=== PATIENT | female | born 1985 | race Two or more races ===

== ENCOUNTER 2025-02-02 12:43 | Outpatient (RCR) | payer MEDICAID, SELFPAY ==
--- NOTE | 2025-02-02 13:03 | XR_ITS ---
Examination: Biophysical profile, ultrasound Date and time of exam: February 02, 2025 1313 hours INDICATIONS: Diagnosis advanced maternal age Technique: Multiple transabdominal sonographic images of the pelvis abdomen obtained. Attention is directed to the breathing movement, gross body movement, amniotic fluid volume and tone. Findings: Amniotic fluid index 9.1 cm Total biophysical profile is 8 of 8. breathing movement is 2. Gross body movement is 2. tone is 2. Qualitative amniotic fluid volume is 2 Impression: Biophysical profile is 8 of 8.
[2025-02-02 13:35] VITALS: BP 112/55; PULSE 74; RESP 16; TEMP 36.7
== END 2025-02-02 23:59 | disposition home or self-care (01) ==
LOC: S4S1 12:43
PROVIDERS: Referring Provider Nurse Practitioner Women's Health; Visit Provider Nurse Practitioner Women's Health
DX: O09.523 Supervision of elderly multigravida, third trimester (principal); Z3A.37 37 weeks gestation of pregnancy
CPT/HCPCS: 59025; 76819

== ENCOUNTER 2025-02-03 02:24 | Inpatient (IN) | payer MEDICAID, SELFPAY ==
[2025-02-03] VITALS (13 sets, daily range): BP systolic 97–162; BP diastolic 58–91; PULSE 63–98; RESP 15–99; TEMP 36.6–37.4; O2SAT 98; BMI 35.2
[2025-02-03] MEDS: OXYTOCIN in NS 20 units 20 UNIT/1,000 ML BAG 125 UNIT IV (03:25)
[2025-02-03] MEDS: BENZO/LANO/ALOE (Dermoplast) 60 GM CAN 1 SPRAY TOP (03:29)
--- NOTE | 2025-02-03 03:29 | PD.LDHP ---
Documentation for date of: 02/03/25 OB Labor/Induct. HPI History of Present Illness : 9 Para: 7 Term pregnancies: 3 pregnancies: 4 Living children: 7 History of Abortions: Spontaneous and Elective: 2 History of Vaginal deliveries: 7 History of sections: No History of : No Date of last menstrual period: 05/15/24 SHEA: 02/19/25 Gestational Age (weeks): 37 Gestational Age (days): 5 Gestational age based on last menstrual period: 37 History of present illness: 40-year-old -4-0-7 at 37 weeks and 5 days estimated due date of 02/19/2025 presented to labor and delivery triage with advanced cervical dilatation and went on to proceed deliver precipitously Patient is a grand multipara with a history of 4 deliveries between 33 and 36 weeks She receives care with CNM at [facility] Per verbal history and available records no specific medical complications of were not History of Present Adequate Care: Yes Labs Maternal Blood Type: O Pos Labs: Positive: Rubella Titre, Negative: RPR, Hepatitis B, HIV, Chlamydia, Gonorrhea and Group Beta Strep and Unknown: Herpes Type 1, Herpes Type 2 and Covid-19 Review of Systems Review of Systems Systems Reviewed: All systems reviewed, normal except as documented Past Medical History Surgical History SURGICAL: Negative Section Meds Home Medications and Allergies Home Medications ?Medication ?Instructions ?Recorded ?Confirmed ?Type ferrous sulfate 325 mg (65 mg 325 mg PO QDAY 02/23/23 02/03/25 History iron) tablet (Iron (ferrous sulfate)) folic acid 1 mg tablet 1 mg PO QDAY 02/23/23 02/03/25 History [id number] 1 mg 1 tab PO 1XD 02/23/23 02/03/25 History tablet Allergies Allergy/AdvReac Type Severity Reaction Status Date / Time No Known Allergies Allergy Verified 02/03/25 03:09 OB Exam Constitutional Constitutional: no acute distress Routine HEENT Exam Head: Present normocephalic and atraumatic Eye: Present EOMI and PERRL ENT: Present mucous membranes moist Routine Neck Exam Neck: Present supple and trachea midline Routine Cardiovascular Exam Cardiovascular: Present RRR Routine Abdominal Exam Abdominal: Present soft and normoactive bowel sounds Detailed Labor and Delivery Exam Dilation (cm): 10 Effacement (%): 100 Cervix position: mid station: +3 Consistency: soft Presentation: Vertex Baseline heart rate: 140 monitor accelerations: 15x15 monitor decelerations: None manager long term care variability: Average (6-10) Contraction frequency (min): 5 Routine Extremities Exam Extremities: Present full ROM Routine Skin Exam Skin: Present intact, dry and warm Routine Neurological Exam Neurological: Present alert, oriented X3 and CN II-XII intact Routine Psychiatric Exam Psychiatric: Present normal affect and normal thought process OB Assessment & Plan Assessment and Plan (1) Precipitous delivery: Status: Acute Assessment and plan: Admit to Inpatient to labor and Delivery GBS: neg Vital Signs per protocol External monitor/Tocometry Activity: Bedrest w/bathroom privileges Intake and Urine Output Monitoring Urine catheter as needed Diet: As tolerated in Intravenous Fluids: Lactated Ringers 5% Dextrose at 125 cc/hour Labs Complete Blood Count Blood Type and Antibody Screen (Indirect Quinn) RPR COVID-19 RNA Plan: Routine management Monitor for hemorrhage due to grand multiparity
[2025-02-03 05:14] LABS: Basophils % (Auto) 0 % (0-2.5); Eosinophils # (Auto) 0.1 Thou/mm3 (0.0-0.5); Eosinophils % (Auto) 1 % (0-10); Hematocrit 30.7 % (36.0-46.0); Hemoglobin 9.8 g/dL (12.0-16.0); Immature Granulocytes % (Auto) 2 % (0-0); Immature Granulocytes Auto 0.17 Thou/mm3 (0.00-0.00); Lymphocytes # (Auto) 2.1 Thou/mm3 (1.0-4.8); Lymphocytes % (Auto) 21 % (10-50); Mean Corpuscular HGB Conc 31.9 g/dl (31.0-37.0); Mean Corpuscular Hemoglobin 23.3 pg (25.0-35.0); Mean Corpuscular Volume 73 fL (80-100); Monocytes # (Auto) 0.6 Thou/mm3 (0.0-0.8); Monocytes % (Auto) 6 % (0-12); Neutrophils % (Auto) 70 % (37-80); Nucleated Red Blood Cell # 0.05 Thou/mm3 (0.00-0.00); Nucleated Red Blood Cell % 1 /100 WBC (0); Platelet Count 209 Thou/mm3 (140-440); RDW Standard Deviation 43.1 fL (36.4-46.3)
[2025-02-03] MEDS: DOCUSATE SOD 100 MG CAPSULE PO (08:52)
[2025-02-03 10:33] LABS: Alanine Aminotransferase 8 U/L (10-49); Albumin, Serum 2.9 gm/dL (3.5-5.0); Albumin/Globulin Ratio 1.3 (1.2-2.2); Alkaline Phosphatase 107 U/L (46-116); Anion Gap 9 (7-16); Aspartate Amino Transferase 16 U/L (0-34); BUN/Creatinine Ratio 34 Ratio (12-20); Bilirubin,Total 0.3 mg/dL (0.3-1.2); Blood Urea Nitrogen 17 mg/dL (9-23); Calcium 8.1 mg/dL (8.3-10.6); Carbon Dioxide 20.5 mMol/L (20.0-31.0); Chloride 109 mMol/L (98-107); Creatinine (Component) 0.5 mg/dL (0.6-1.3); Estimated Creatinine Clearance 173.3 mL/min (>60); Globulin 2.2 gm/dL (2.3-3.5); Glucose 110 mg/dL (74-106); LDH (Lactate Dehydrogenase) 215 U/L (120-246); Osmolality,Calculated 278 (275-295); Potassium 3.8 mMol/L (3.4-5.1); Sodium 138 mMol/L (136-145); Total Protein 5.1 gm/dL (5.7-8.2); Uric Acid 4.1 mg/dL (3.1-7.8); eGFR > 60 See Note
[2025-02-03] MEDS: IBUPROFEN TAB 400 MG TABLET 800 MG PO (12:43)
[2025-02-03 13:49] LABS: Syphilis Nonreactive (Nonreactive)
[2025-02-04 03:55] VITALS: BP 114/73; PULSE 61; RESP 18; TEMP 36.7; O2SAT 98
[2025-02-04 06:48] LABS: Basophils # (Auto) 0.1 Thou/mm3 (0.0-0.2); Basophils % (Auto) 1 % (0-2.5); Eosinophils # (Auto) 0.1 Thou/mm3 (0.0-0.5); Eosinophils % (Auto) 1 % (0-10); Hematocrit 24.7 % (36.0-46.0); Immature Granulocytes % (Auto) 2 % (0-0); Immature Granulocytes Auto 0.15 Thou/mm3 (0.00-0.00); Lymphocytes # (Auto) 1.9 Thou/mm3 (1.0-4.8); Lymphocytes % (Auto) 20 % (10-50); Mean Corpuscular Hemoglobin 24.2 pg (25.0-35.0); Mean Corpuscular Volume 76 fL (80-100); Monocytes # (Auto) 0.5 Thou/mm3 (0.0-0.8); Monocytes % (Auto) 5 % (0-12); Neutrophils # (Auto) 6.7 Thou/mm3 (1.8-7.7); Neutrophils % (Auto) 71 % (37-80); Nucleated Red Blood Cell # 0.02 Thou/mm3 (0.00-0.00); Nucleated Red Blood Cell % 0 /100 WBC (0); Platelet Count 179 Thou/mm3 (140-440); RDW Standard Deviation 44.8 fL (36.4-46.3); Red Blood Count 3.27 Miln/mm3 (4.00-5.20); White Blood Count 9.4 Thou/mm3 (3.6-11.0)
[2025-02-04 06:50] LABS: Hemoglobin 7.9 g/dL (12.0-16.0)
[2025-02-04 08:00] VITALS: BP 110/71; PULSE 66; RESP 16; TEMP 36.8
[2025-02-04] MEDS: DOCUSATE SOD 100 MG CAPSULE PO (08:09)
--- NOTE | 2025-02-04 13:12 | ESDS_ITS ---
DS: Providers Provider Date of admission: 02/03/25 02:55 Primary care physician: Physician No Primary/Family Admitting Provider: Randal Braden MD Attending Provider on Admission: Brian Tom MD Consults: 02/03/25 04:40 Referral Routine Comment: Attending Provider on DC: Janette Kaufman CNM Discharging Provider: Janette Kaufman CNM Anticipated date of discharge: 02/04/25 DS: Diagnosis Discharge Diagnosis (1) Precipitous delivery: Status: Acute Problem List Completed Was Problem List Reviewed/Reconciled?: Yes Summary/Hosp Course Brief History: 40-year-old -4-0-7 at 37 weeks and 5 days estimated due date of 02/19/2025 presented to labor and delivery triage with advanced cervical dilatation and went on to proceed deliver precipitously Patient is a grand multipara with a history of 4 deliveries between 33 and 36 weeks She receives care with CNM at [facility] Per verbal history and available records no specific medical complications of were not 02/04/25: PPD#1 patient is stable and afebrile doing well and . Denies dizziness shortness of breath. Uterus is nontender fundus firm minimal lochia. Discharge instructions given. Patient to follow-up with Janette Kaufman CNM in 3 weeks Peripartum Data Delivery Method: Normal Vaginal Delivery Episiotomy Description: None Laceration Description: no complications: none [place] 1: Gender: Female Disposition of : home Status at Discharge Cognitive/behavioral status at discharge: Alert and oriented x 3 Functional status at discharge: independent ambulation Overall status at discharge: patient is progressing back to baseline Time Spent with Patient Time attestation: Total time spent providing and/or coordinating discharge services: Time spent: Greater than 30 minutes Exam Vital Signs Temp Pulse Resp BP Pulse Ox O2 Del Method 98.3 F 66 16 110/71 98 Room Air 02/04/25 08:00 02/04/25 08:00 02/04/25 08:00 02/04/25 08:00 02/04/25 03:55 02/04/25 08:00 Constitutional Constitutional: no acute distress Routine HEENT Exam Head: Present normocephalic and atraumatic Eye: Present EOMI, PERRL and normal accommodation ENT: Present mucous membranes moist Routine Neck Exam Neck: Present supple, full ROM and trachea midline Routine Respiratory Exam Respiratory: Present chest non-tender, lungs clear, normal breath sounds and no resp distress Routine Cardiovascular Exam Cardiovascular: Present RRR Routine Abdominal Exam Abdominal: Present soft and normoactive bowel sounds; Absent tenderness or distended Comments: Uterus nontender Fundus firm Routine Exam Patient deferred: external exam Routine Extremities Exam Extremities: Present full ROM, pulses intact and normal capillary refill; Absent calf tenderness or tenderness Routine Back/Spine/Pelvis Exam Back/Spine: Present full ROM Routine Skin Exam Skin: Present intact, dry and warm Routine Neurological Exam Neurological: Present alert, oriented X3 and CN II-XII intact Routine Psychiatric Exam Psychiatric: Present normal affect and normal thought process Discharge Plan Plan Patient Disposition: HOME (Self Care) Patient condition on transfer: Stable Prescriptions/Referrals Prescriptions/Med Rec: New ibuprofen 800 mg tablet 800 mg PO Q6H PRN (Reason: pain) 10 Days Qty: 40 0RF docusate sodium [Stool Softener] 100 mg capsule 100 mg PO QDAY 30 Days Qty: 30 0RF lanolin 50 % ointment 1 applic topical TID PRN (Reason: skin irritation) Qty: 15 0RF Discontinued ferrous sulfate [Iron (ferrous sulfate)] 325 mg (65 mg iron) Tablet 325 mg PO QDAY folic acid 1 mg Tablet 1 mg PO QDAY acetaminophen 650 mg tablet extended release 650 mg PO Q12H PRN (Reason: fever or pain) Qty: 30 0RF ibuprofen 800 mg tablet 800 mg PO Q8H PRN (Reason: pain) Qty: 30 0RF No Action 1 mg Tablet 1 tab PO 1XD Referrals: Randal Braden MD [Physician] - No Primary/Family,Physician [Primary Care Provider] - Patient/Caregiver Discharge Instructions Meds to Beds: Yes Discharge Activity: activity as tolerated Other Discharge Activity Instructions:: Follow-up with Janette Kaufman CNM in 3 weeks Education Materials: After a Vaginal , After Delivery [place] Concerns, Breast Care After Print Language: Kyrgyz Stand Alone Forms: Elaine Award Info., Patient Portal Info Letter Discharge Order Discharge Orders: Discharge (Routine); Ordered 02/04/25 Ordered By: Janette Kaufman Planned Discharge Date 02/04/25
== END 2025-02-04 16:50 | disposition home or self-care (01) | DRG 560 ==
LOC: S4SX 05:28 → S4NX 06:34
PROVIDERS: Admitting Provider Obstetrics & Gynecology; Visit Provider Student in an Organized Health Care Education/Training Program
DX: O62.3 Precipitate labor (principal); Z37.0 Single live birth; Z3A.37 37 weeks gestation of pregnancy
CPT/HCPCS: 36415; 59025; 59409; 80053; 81001; 83615; 84112; 84550; 85025; 85384; 85610; 85730; 86780; 86850; 86900; 86901; J2590; A9270